=== PATIENT | male | born 1970 | race Caucasian/White ===

== ENCOUNTER 2016-04-01 21:48 | Emergency (ER) | payer OTHER ==
[2016-04-01 21:54] VITALS: TEMP 98.2
[2016-04-01] MEDS ORDERED: ASPIRIN 325 MG TAB PO ONE (22:09)
--- NOTE | 2016-04-01 22:09 | EDPHY ---
H & P Stated Complaint: HEART RACING OFF/ON X3 WEEK, ? LEFT ARM TINGLING HPI/ROS: HPI CHIEF COMPLAINT: [ ] HISTORY OF PRESENT ILLNESS: [Need 4: Location, Duration, Severity, Quality, Context, Timing Modifying Factors, Associated S&S] Past Medical History: Past Surgical History: Social History: Family History: ROS REVIEW OF SYSTEMS: A comprehensive 10 point review of systems is otherwise negative aside from elements mentioned in the history of present illness. Exam Constitutional triage nursing summary reviewed, vital signs reviewed, awake/ alert. Eyes normal conjunctivae and sclera, EOMI, PERRLA. HENT normal inspection, atraumatic, moist mucus membranes, no epistaxis, neck supple/ no meningismus, no raccoon eyes. Respiratory clear to auscultation bilaterally, normal breath sounds, no respiratory distress, no wheezing. Cardiovascular rate normal, regular rhythm, no murmur, no edema, distal pulses normal. Gastrointestinal soft, non-tender, no rebound, no guarding, normal bowel sounds, no distension, no pulsatile mass. Genitourinary no CVA tenderness. Musculoskeletal no midline vertebral tenderness, full range of motion, no calf swelling, no tenderness of extremities, no meningismus, good pulses, neurovascularly intact. Skin pink, warm, & dry, no rash, skin atraumatic. Neurologic awake, alert and oriented x 3, AAOx3, moves all 4 extremities equally, motor intact, sensory intact, CN II-XII intact, normal cerebellar, normal vision, normal speech. Psychiatric normal mood/affect. Heme/Lymph/Immune no lymphadenopathy. Differential Diagnosis: Medical Decision Making: Re-evaluation: Source: Patient - Personal History Current Tetanus/Diphtheria Vaccine: Unsure - Medical/Surgical History Hx Asthma: No Hx Chronic Respiratory Disease: No Hx Diabetes: No Hx Cardiac Disease: No Hx Renal Disease: No Hx Cirrhosis: No Hx Alcoholism: No Hx HIV/AIDS: No Hx Splenectomy or Spleen Trauma: No Other PMH: RIGHT KNEE SURG, HERNIA - Social History Smoking Status: Never smoked Constitutional: Initial Vital Signs Temperature (C) 36.8 C 04/01/16 21:51 Heart Rate 60 04/01/16 21:51 Respiratory Rate 22 H 04/01/16 21:51 Blood Pressure 141/69 H 04/01/16 21:51 O2 Sat (%) 96 04/01/16 21:51 O2 Delivery Mode Room Air Allergies/Adverse Reactions: Penicillins Allergy (Unknown, Verified 04/01/16 21:51)
[2016-04-01] MEDS ORDERED: ASPIRIN 325 MG TAB ONE (22:13)
[2016-04-01 22:19] LABS: % IMMATURE GRANULYOCYTES 0.2 % (0.0-1.1); ABSOLUTE IMMATURE GRANULOCYTES 0.01 10^3/uL (0.00-0.10); ADD DIFF? NO; ADD MORPH? NO; ADD SCAN? NO; ATYPICAL LYMPHOCYTE FLAG 30 (0-99); FRAGMENT RBC FLAG 0 (0-99); HEMATOCRIT 44.9 % (40.0-51.0); HEMOGLOBIN 14.8 g/dL (13.7-17.5); LEFT SHIFT FLG 0 (0-99); LIPEMIA HEMOLYSIS FLAG 80 (0-99); MEAN CELL HEMOGLOBIN 29.2 pg (27.9-34.1); MEAN CELL VOLUME 88.6 fL (81.5-99.8); MEAN PLATELET VOLUME 10.1 fL (8.7-11.7); PLATELET CLUMPS FLAG 0 (0-99); PLATELET COUNT 281 10^3/uL (150-400); RED BLOOD CELL COUNT 5.07 10^6/uL (4.40-6.38); RED CELL DISTRIBUTION WIDTH 12.8 % (11.5-15.2)
[2016-04-01 22:34] LABS: ANION GAP 13 mEq/L (8-16); CALCIUM 9.7 mg/dL (8.5-10.4); CARBON DIOXIDE 26 mEq/l (22-31); CHLORIDE 99 mEq/L (97-110); CREATININE 1.1 mg/dL (0.7-1.3); GLOMERULAR FILTRATION RATE > 60; GLUCOSE 93 mg/dL (70-100); POTASSIUM 4.1 mEq/L (3.5-5.2); SODIUM 138 mEq/L (134-144)
[2016-04-01 22:45] LABS: TROPONIN I 0.013 ng/mL (0-0.034)
--- NOTE | 2016-04-01 22:45 | DX ---
Portable AP chest. April 01, 2016at 2233 History: Chest pain Findings: Lungs are clear. Heart size is normal. No pneumothorax or pneumonia. Impression: Negative portable chest
--- NOTE | 2016-04-01 23:00 | CPEKG ---
Heart Rate: 50 RR Interval: 1200 P-R Interval: 204 QRSD Interval: 102 QT Interval: 444 QTC Interval: 405 P [place]: 72 QRS [place]: 46 T Wave [place]: 49 EKG Severity - NORMAL ECG - EKG Impression: SINUS RHYTHM Electronically Signed By: Wallace Jara 01-Apr-2016 23:56:36
--- NOTE | 2016-04-01 23:30 | EDPHY ---
H & P Time Seen by Provider: 04/01/16 22:09 HPI/ROS: HPI Chest fluttering. 45-year-old male by private vehicle with his . This patient reports that for the last 2 weeks most noticeably at night he has had a fluttering like sensation in his left upper chest. He denies any chest pain. No squeezing or aching. No associated shortness of breath. He reports that he noticed it tonight and he had a tingling sensation in his left arm and hand. He has no cardiac risk factors. No family history of coronary artery disease. He denies this sensation currently. ROS: Constitutional: No fever, no chills. No weakness. Eyes: No discharge. No changes in vision. ENT: No sore throat. No nasal congestion or rhinorrhea. Respiratory: No cough. No shortness of breath. Cardiac: No chest pain, as above. Gastrointestinal: No abdominal pain, no vomiting, no diarrhea. Genitourinary: No hematuria. No dysuria or increased frequency with urination. Musculoskeletal: No back pain. No neck pain. No myalgias or arthralgias. Skin: No rashes. Neurological: No headache. No focal weakness or altered sensation. Past medical history: None. No prescription medications. Social history: Nonsmoker. Here with his . No IV drugs or street drugs. Physical Exam: General Appearance: Alert, no distress. This patient is responding to questions appropriately and in full sentences. This patient appears well- hydrated and well-nourished. Eyes: Pupils equal and round no pallor or injection. No lid edema, erythema or injection. Respiratory: There are no retractions, lungs are clear to auscultation with good air movement bilaterally. Cardiovascular: Regular rate and rhythm. No murmur. Gastrointestinal: Abdomen is soft and nontender, no masses, bowel sounds normal. No focal tenderness at McBurney's point. No Caceres sign. Neurological: Motor sensory function is grossly intact. Cranial nerves are normal. Gait is normal. Skin: Warm and dry, no rashes. Musculoskeletal: Neck is supple and nontender. Extremities are symmetrical. All joints range without pain or impingement. Psychiatric: No agitation. No depression. Database: EKG: EKG time is 10:03 p.m.; EKG shows a narrow complex normal sinus rhythm with a ventricular rate of 50. The VT, QRS, QT intervals are within normal limits. There are no ST-T wave changes indicative of ischemic or injury pattern. No evidence of right heart strain. No evidence of WPW, Brugada syndrome, hypertrophic cardiomyopathy. Interpreted by me. Imaging: Chest x-ray AP portable; the cardiac mediastinal silhouette is unremarkable. No evidence of infiltrate or pneumothorax. No acute cardiopulmonary disease process noted. Interpreted by me. Procedures: Emergency department course: From triage the patient was given 324 mg of chewed aspirin. EKG performed. IV placed. Patient placed on a monitor. Patient sent for chest x-ray. He has been asymptomatic while in the emergency department. 11:30 p.m., discussed results of his chest x-ray, EKG and blood work with him. His presentation is not consistent with acute coronary syndrome or pulmonary embolism. I will have him follow up with [facility] for re-evaluation and provocative testing with an 2-3 days. He feels comfortable going home. He is in agreement with this plan. Return to emergency department precautions were reviewed with him. All of his questions were answered. He was discharged in good condition with his . Differential Diagnosis: The differential diagnosis on this patient includes but is not limited to anxiety reaction, noncardiac chest discomfort. Acute coronary syndrome, pulmonary embolism, myocarditis, pericarditis, aortic dissection, arrhythmia unlikely This represents a partial list of diagnoses considered. These considerations are based on history, physical exam, past history, reassessment and diagnostic testing. Smoking Status: Never smoked Constitutional: Initial Vital Signs Temperature (C) 36.8 C 04/01/16 21:51 Heart Rate 60 04/01/16 21:51 Respiratory Rate 22 H 04/01/16 21:51 Blood Pressure 141/69 H 04/01/16 21:51 O2 Sat (%) 96 04/01/16 21:51 O2 Delivery Mode Room Air Allergies/Adverse Reactions: Penicillins Allergy (Unknown, Verified 04/01/16 21:51) Medical Decision Making - Data Points Laboratory Results: Laboratory Results 04/01/16 22:05 04/01/16 22:05 04/01/16 22:05 WBC 6.57 10^3/uL (3.80-9.50) RBC 5.07 10^6/uL (4.40-6.38) Hgb 14.8 g/dL (13.7-17.5) Hct 44.9 % (40.0-51.0) MCV 88.6 fL (81.5-99.8) MCH 29.2 pg (27.9-34.1) MCHC 33.0 g/dL (32.4-36.7) RDW 12.8 % (11.5-15.2) Plt Count 281 10^3/uL (150-400) MPV 10.1 fL (8.7-11.7) Neut % (Auto) 43.0 % (39.3-74.2) Lymph % (Auto) 41.9 % (15.0-45.0) [place] % (Auto) 6.8 % (4.5-13.0) Eos % (Auto) 7.3 % (0.6-7.6) Baso % (Auto) 0.8 % (0.3-1.7) Nucleat RBC Rel Count 0.0 % (0.0-0.2) Absolute Neuts (auto) 2.83 10^3/uL (1.70-6.50) Absolute Lymphs (auto) 2.75 10^3/uL (1.00-3.00) Absolute Monos (auto) 0.45 10^3/uL (0.30-0.80) Absolute Eos (auto) 0.48 H 10^3/uL (0.03-0.40) Absolute Basos (auto) 0.05 10^3/uL (0.02-0.10) Absolute Nucleated RBC 0.00 10^3/uL (0-0.01) Immature Gran % 0.2 % (0.0-1.1) Immature Gran # 0.01 10^3/uL (0.00-0.10) Sodium 138 mEq/L (134-144) Potassium 4.1 mEq/L (3.5-5.2) Chloride 99 mEq/L (97-110) Carbon Dioxide 26 mEq/l (22-31) Anion Gap 13 mEq/L (8-16) BUN 18 mg/dL (7-23) Creatinine 1.1 mg/dL (0.7-1.3) Estimated GFR > 60 Glucose 93 mg/dL (70-100) Calcium 9.7 mg/dL (8.5-10.4) Troponin I 0.013 ng/mL (0-0.034) Medications Given: Discontinued Medications Aspirin (Aspirin) 325 mg PO EDNOW ONE Stop: 04/01/16 22:10 Last Admin: 04/01/16 22:15 Dose: 325 mg Departure - Departure Disposition: Home, Routine, Self-Care Clinical Impression: Palpitations, Chest discomfort Condition: Good Instructions: Palpitations (ED), Chest Pain (ED) Additional Instructions: Read and follow provided instructions. Follow-up with Dr. Warren or 1 of his partners at [facility] for re- evaluation and stress testing as discussed within the next 2-3 days. Call their office in the morning for appointment time. Explained this is for an emergency department follow-up for chest discomfort. Avoid exercise or strenuous physical activity until you have been cleared by [facility]. Return to the emergency department for chest pain, shortness of breath, difficulty breathing, lightheadedness or other serious concerns. Referrals: Wilder Warren MD [Medical Doctor] - As per Instructions
[2016-04-01 23:40] VITALS: BP 146/71; PULSE 56; RESP 18; O2SAT 93
== END 2016-04-01 23:39 | disposition home or self-care (01) ==
DX: R00.2 Palpitations (principal); R07.89 Other chest pain

== ENCOUNTER → 2018-03-02 | Outpatient (CLI) | payer OTHER | LOC: FLAB 10:38 | PROVIDERS: ATTEND Internal Medicine | DX: M54.9 Dorsalgia, unspecified (principal); M47.896 Other spondylosis, lumbar region; M86.9 Osteomyelitis, unspecified ==